=== PATIENT | female | born 1950 | race Caucasian/White ===

== ENCOUNTER 2017-12-16 14:23 | Outpatient (CLI) | payer MEDICARE, OTHER | END 2017-12-16 14:24 | disposition home or self-care (01) | LOC: BICMAMMO 14:23 | PROVIDERS: ATTEND General Practice | DX: Z12.31 Encounter for screening mammogram for malignant neoplasm of breast (principal); Z80.3 Family history of malignant neoplasm of breast | CPT/HCPCS: 77063; 77067 ==

== ENCOUNTER 2017-12-23 13:01 | Outpatient (CLI) | payer MEDICARE, OTHER | END 2017-12-23 13:02 | disposition home or self-care (01) | LOC: BICMAMMO 13:01 | PROVIDERS: ATTEND General Practice | DX: R92.2 Inconclusive mammogram (principal); Z80.3 Family history of malignant neoplasm of breast | CPT/HCPCS: 77065; G0279 ==

== ENCOUNTER 2018-01-19 04:18 | Emergency (ER) | payer MEDICARE, OTHER ==
[2018-01-19 04:49] LABS: #Basophils 0.1 thou/uL (0.0-0.2); #Eosinphils 0.3 thou/uL (0.0-0.7); #Lymphocytes 2.2 thou/uL (1.20-3.40); #Monocytes 0.6 thou/uL (0.11-0.59); #Neutrophils 2.9 thou/uL (1.40-6.50); %Basophils 1.5 % (0.0-1.0); %Eosinophils 4.2 % (0.0-10.0); %Lymphocytes 36.1 % (21.0-51.0); %Monocytes 10.2 % (0.0-10.0); %Neutrophils 48.1 % (42.0-75.0); Hemoglobin 14.4 g/dL (12.0-16.0); Mean Corpuscular HGB CONC 33.8 g/dL (32.0-36.0); Mean Corpuscular Hemoglobin 30.3 pg (27.0-31.0); Mean Corpuscular Volume 89.8 fl (81.0-99.0); Mean Platelet Volume 8.1 fL (7.4-10.4); Platelet Count 230 thou/uL (130-400); RBC Distribution Width 11.9 % (11.5-14.5); Red Blood Cell (RBC) Count 4.75 mill/uL (4.20-5.40); White Blood Cell (WBC) Count 6.1 thou/uL (4.8-10.8)
[2018-01-19 05:14] LABS: ALT (SGPT) 17 U/L (8-55); AST (SGOT) 16 U/L (5-34); Albumin 4.1 g/dL (3.4-4.8); Alkaline Phosphatase 70 U/L (40-150); Anion Gap 11 mmol/L (10-20); BUN (Urea Nitrogen) 16 mg/dL (9.8-20.1); Bilirubin, Total 0.3 mg/dL (0.2-1.2); Calc. Creatinine Clearance 0 mL/min (70-130); Calcium 8.8 mg/dL (7.8-10.44); Carbon Dioxide 22 mmol/L (23-31); Chloride 108 mmol/L (98-107); Estimated GFR-MDRD 57; Globulin 2.9 g/dL (2.4-3.5); Glucose 107 mg/dL (80-115); Lipase 34 U/L (8-78); Potassium 4.3 mmol/L (3.5-5.1); Sodium 137 mmol/L (136-145)
[2018-01-19 05:20] LABS: Bilirubin Negative (Negative); Blood, Urine Negative (Negative); Clarity CLOUDY (Clear); Glucose, Urine (Dipstick) Negative (Negative); Leukocyte Small (Negative); Nitrite Negative (Negative); Protein, Urine (Dipstick) Negative (Neg-Trace); Specific Gravity, Urine 1.014 (1.002-1.036); Urobilinogen 0.2 mg/dL (0.2-1.0)
[2018-01-19 05:49] LABS: Troponin I Less than 0.010 ng/mL (< 0.028)
[2018-01-19] MEDS ORDERED: Ketorolac Tromethamine 30 MG/ML VIAL ONE (06:32)
--- NOTE | 2018-01-19 10:39 | ULT ---
PRELIMINARY REPORT/[facility]/EMERGENTY AFTER-HOURS PROCEDURE US Abdomen Limited, Right Upper Quadrant CLINICAL HISTORY: 67 years old, female; Pain and signs and symptoms; Nausea and other: Diarrhea; Abdominal pain; Epigas tric; Patient HX: Epigastric pain that radiates to chest and back TECHNIQUE: Real-time ultrasound of the right upper quadrant with image documentation. COMPARISON: No relevant prior studies available. FINDINGS: Normal gallbladder. No cholelithiasis. No gallbladder wall thickening or pericholecystic fluid. No bi liary dilation, common duct measures about 4-5 mm. Slight increased echogenicity of the liver may ind icate fatty infiltration. Otherwise unremarkable liver, no focal abnormality. Visible pancreas unremarkable. Images of the right kidney show no hydronephrosis. IMPRESSION: No cholelithiasis or biliary tree dilation. Other findings discussed above. Thank you for allowing us to participate in the care of your patient. Dictated and Authenticated by: Cristofer Hayes MD 01/19/2018 6:35 AM Central Time ([place] & [place]) FINAL REPORT RIGHT UPPER QUADRANT ULTARSOUND: I agree with the preliminary report given by Dr. Cristofer Hayes of [facility]. POS: [facility]
--- NOTE | 2018-01-22 16:18 | EKG ---
Test Reason : Blood Pressure : / mmHG Vent. Rate : 065 BPM Atrial Rate : 065 BPM P-R Int : 166 ms QRS Dur : 072 ms QT Int : 420 ms P-R-T Axes : 062 024 024 degrees QTc Int : 436 ms Normal sinus rhythm Nonspecific T wave abnormality Abnormal ECG No ectopy Confirmed by BRYAN WEBBER, GIANCARLO ([id number]), editor farm journal KYLE BALDERRAMA ([id number]) on 01/22/2018 4:18:07 PM Referred By: Confirmed By:GIANCARLO ADAMS MD
== END 2018-01-19 07:19 | disposition home or self-care (01) ==
LOC: ERS 04:18
DX: K21.9 Gastro-esophageal reflux disease without esophagitis (principal); I10 Essential (primary) hypertension; Z79.899 Other long term (current) drug therapy
CPT/HCPCS: 76705; 80053; 81003; 81015; 82553; 83690; 84484; 85025; 93005; 96374; J1885

== ENCOUNTER 2018-07-22 05:45 | Day surgery (SDC) | payer MEDICARE, OTHER ==
--- NOTE | 2018-07-21 07:37 | HP ---
HISTORY OF PRESENT ILLNESS: This is a 68-year-old female who reports to the office for evaluation of carpal tunnel bilaterally. The patient states that she has had a lot of pain, numbness in both wrists. 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 The pain is worse at night after a long day of work. She has significant thenar atrophy as well as first dorsal interosseous atrophy. The patient denies any neck pain; however, she does have some pain that radiates up the back of her hands into her forearms. The patient denies using night splints. She has been referred to our office from Dr. France following him. EMG and nerve conduction study showing bilateral carpal tunnel. REVIEW OF SYSTEMS: A 10-point review of systems has been completed and is negative other than stated in the above HPI. PAST MEDICAL HISTORY: High cholesterol and hypertension. PAST SURGICAL HISTORY: Denies any past surgeries. FAMILY HISTORY: Father is , diagnosed with a stroke. Mother is , diagnosed with hypertension. SOCIAL HISTORY: The patient is a nonsmoker. Denies alcohol or other drug use. MEDICATIONS: Atenolol, aspirin. ALLERGIES: No known drug allergies. PHYSICAL EXAMINATION: HEENT: Head normocephalic, atraumatic. Extraocular movements are intact. Pupils are intact. NECK: Normal, soft, supple, no masses noted. Range of motion is intact and nonpainful. NEUROLOGIC: Awake, alert and oriented x3. Memory attention, fund of knowledge and language are normal. Cranial nerves are grossly intact. UPPER EXTREMITIES: 5/5 bilateral strength deltoids, biceps, triceps, wrist extension, finger extension, 4/5 finger intrinsics bilaterally. No deep tendon asymmetry. RESPIRATIONS: Normal work of breathing room air. IMAGING/TESTING: EMG nerve conduction study shows bilateral carpal tunnel entrapment median nerve. ASSESSMENT AND PLAN: Carpal tunnel syndrome of the right wrist. Dr. Roblero has offered surgery. The patient must be off aspirin for at least a week. The patient states that she understands the risks of surgery and is willing to move forward. [facility] HEALTH SYSTEMRosemarie
[2018-07-21 10:20] VITALS: BMI 33.4
[2018-07-22] MEDS ORDERED: Sodium Chloride 0.9% 10 ML ONE (06:18)
[2018-07-22 06:21] LABS: #Basophils 0.1 thou/uL (0.0-0.2); #Eosinphils 0.3 thou/uL (0.0-0.7); #Lymphocytes 2.3 thou/uL (1.20-3.40); #Monocytes 0.9 thou/uL (0.11-0.59); #Neutrophils 3.9 thou/uL (1.40-6.50); %Basophils 1.4 % (0.0-1.0); %Eosinophils 4.5 % (0.0-10.0); %Lymphocytes 30.3 % (21.0-51.0); %Monocytes 11.4 % (0.0-10.0); %Neutrophils 52.5 % (42.0-75.0); Hemoglobin 14.7 g/dL (12.0-16.0); Mean Corpuscular HGB CONC 32.2 g/dL (32.0-36.0); Mean Platelet Volume 8.1 fL (7.4-10.4); PTT 28.1 SEC (22.9-36.1); Platelet Count 259 thou/uL (130-400); Prothrombin Time 13.2 SEC (12.0-14.7); RBC Distribution Width 11.8 % (11.5-14.5); White Blood Cell (WBC) Count 7.5 thou/uL (4.8-10.8)
[2018-07-22] MEDS ORDERED: Lidocaine 1% (PF) 30 ML VIAL ONE (06:32)
[2018-07-22] MEDS ORDERED: Bacitracin Zinc Ointment 30 gm TUBE ONE (06:32)
[2018-07-22] MEDS ORDERED: CEFAZOLIN 2 GM/50 ML BAG ONE (06:34)
[2018-07-22] MEDS ORDERED: Fentanyl 100 MCG/2 ML VIAL ONE (06:49)
--- NOTE | 2018-07-22 08:12 | OP ---
DATE OF PROCEDURE: 07/22/2018 SURGEON: Leah Roblero M.D. TICKET DISPENSER CHANGER: None. PREOPERATIVE INDICATION: Treat pain, prevent neurological deterioration. PREOPERATIVE DIAGNOSES: Median neuropathy at the wrist (carpal tunnel syndrome). POSTOPERATIVE DIAGNOSIS: Median neuropathy at the wrist (carpal tunnel syndrome). PROCEDURE: Right-sided carpal tunnel release (median neuropathy at the wrist). PREOPERATIVE MEDICATION: Ancef 2 grams IV. DRAIN NUMBER: 0 DRAIN TYPE: None. PROCEDURE IN DETAIL: The patient was brought to the operating room. LMA anesthesia was induced. We planned an incision from the distal palmar crease into the palm in line with the web space between th e ring and middle finger of the hand. Under the planned incision, we infused local anesthetic. The entire arm was sterilely prepped and draped. We opened with a 15 blade knife and controlled bleeding with gentle bipolar cautery. We placed a self-retaining retractor and used a new 15 blade to sectio n the transverse carpal ligament until we opened the carpal tunnel. A [place] [address] d above the nerve and we sectioned the transverse carpal ligament into the palm until we encountered the palmar fat pad. We then placed a Lashae rake under the skin of the wrist and scissor blades below and above the transverse carpal ligament. We advanced into the wrist until there was no further comp ression of the median nerve. We irrigated copiously with bacitracin irrigation. We controlled bleed ing with gentle bipolar cautery. We closed the wound with vertical mattress 4-0 Prolene sutures. A sterile dressing was applied. This was a clean case and no contamination.
[2018-07-22] MEDS ORDERED: Promethazine HCl 25 MG/ML VIAL IM PRN (08:16)
[2018-07-22] MEDS ORDERED: Ondansetron PF 4 MG/2 ML Vial IVP PRN (08:16)
[2018-07-22] MEDS ORDERED: traMADol HCl 50 MG TAB PO PRN (08:16)
[2018-07-22] MEDS ORDERED: Promethazine 25 MG TAB PO PRN (08:16)
[2018-07-22] MEDS ORDERED: Acetaminophen 325 MG TAB PO PRN (08:16)
[2018-07-22] MEDS ORDERED: Promethazine HCl 12.5 MG SUPP PR PRN (08:16)
[2018-07-22] MEDS ORDERED: diphenhydrAMINE 25 MG CAP PO PRN (08:16)
[2018-07-22] MEDS ORDERED: Acetaminophen/Codeine 30-300mg Tablet PO PRN (08:16)
[2018-07-22] MEDS ORDERED: Dexamethasone 20 MG/5 ML VIAL ONE (13:20)
[2018-07-22] MEDS ORDERED: PROPOFOL 200 MG/20 ML VIAL ONE (13:20)
[2018-07-22] MEDS ORDERED: Ondansetron PF 4 MG/2 ML Vial ONE (13:20)
[2018-07-22] MEDS ORDERED: Ketorolac Tromethamine 30 MG/ML VIAL ONE (13:20)
[2018-07-22] MEDS ORDERED: Lidocaine 1% PF 5 ML VIAL ONE (13:20)
[2018-07-22] MEDS ORDERED: ePHEDrine/0.9% NaCl/PF SYRINGE 50 mg/10 ml ONE (13:20)
== END 2018-07-22 09:35 | disposition home or self-care (01) ==
LOC: SDC 05:45
PROVIDERS: ATTEND Neurological Surgery
PROC: 01N50ZZ Release Median Nerve, Open Approach (ICD-10-PCS; principal; 2018-07-22)
DX: G56.01 Carpal tunnel syndrome, right upper limb (principal); G56.11 Other lesions of median nerve, right upper limb; E78.00 Pure hypercholesterolemia, unspecified; I10 Essential (primary) hypertension; Z88.2 Allergy status to sulfonamides; Z79.899 Other long term (current) drug therapy
CPT/HCPCS: 36415; 85025; 85610; 85730; J1100; J1885; J2001; J2405; J2704; J3010; J3490

== ENCOUNTER 2018-07-24 21:53 | Emergency (ER) | payer MEDICARE, OTHER ==
[2018-07-24] MEDS ORDERED: HYDROcodone/Acetaminophen 5/325 mg Tablet ONE (22:25)
--- NOTE | 2018-07-24 22:43 | RAD ---
RIGHT WRIST THREE VIEWS: 07/24/2018 HISTORY: Right wrist pain. COMPARISON: None. FINDINGS: There is degenerative change involving the lateral aspect of the distal carpal row and the first carp ometacarpal joint. There is no widening of the scapholunate interval. There is chondrocalcinosis in the region of the triangular fibrocartilage complex. There is no displaced fracture or evidence of dislocation. There is radial carpal joint space narrowing, as well as joint space narrowing at the a rticulation of the lunate and capitate, with associated subchondral cystic change. IMPRESSION: Degenerative changes with no acute fracture or dislocation. If this study was performed in the setting of trauma and symptoms persist, followup in 7-10 days with dedicated scaphoid views advised. POS: [facility]
== END 2018-07-24 23:35 | disposition home or self-care (01) ==
LOC: ERS 21:53
DX: M25.531 Pain in right wrist (principal); K21.9 Gastro-esophageal reflux disease without esophagitis; I10 Essential (primary) hypertension; Z79.899 Other long term (current) drug therapy

== ENCOUNTER 2018-08-12 05:56 | Day surgery (SDC) | payer MEDICARE, OTHER ==
[2018-08-11 10:19] VITALS: BMI 32.8
[2018-08-12] MEDS ORDERED: Lidocaine 1% (PF) 30 ML VIAL ONE (06:41)
[2018-08-12] MEDS ORDERED: Sodium Chloride 0.9% 10 ML ONE (06:41)
[2018-08-12] MEDS ORDERED: Bacitracin Zinc Ointment 30 gm TUBE ONE (06:41)
[2018-08-12] MEDS ORDERED: Fentanyl 100 MCG/2 ML VIAL ONE (06:58)
[2018-08-12] MEDS ORDERED: CEFAZOLIN 2 GM/50 ML BAG ONE (09:01)
[2018-08-12] MEDS ORDERED: ePHEDrine/0.9% NaCl/PF SYRINGE 50 mg/10 ml ONE (13:17)
[2018-08-12] MEDS ORDERED: Lidocaine 1% PF 5 ML VIAL ONE (13:17)
[2018-08-12] MEDS ORDERED: Ketorolac Tromethamine 30 MG/ML VIAL ONE (13:17)
[2018-08-12] MEDS ORDERED: PROPOFOL 200 MG/20 ML VIAL ONE (13:17)
[2018-08-12] MEDS ORDERED: Ondansetron PF 4 MG/2 ML Vial ONE (13:17)
--- NOTE | 2018-08-12 14:19 | OP ---
DATE OF PROCEDURE: 08/12/2018 STORE MERCHANDISER: Stacie Toney PA-C PREOPERATIVE INDICATION: Treat pain and prevent neurological deterioration. PREOPERATIVE DIAGNOSIS: Left carpal tunnel syndrome/median neuropathy at the wrist. POSTOPERATIVE DIAGNOSIS: Left carpal tunnel syndrome/median neuropathy at the wrist. PROCEDURE PERFORMED: Left carpal tunnel release/median neurorrhaphy at the wrist. PREOPERATIVE MEDICATION: Ancef 2 g IV. DRAINS: Zero. DRAIN TYPE: None. DESCRIPTION OF PROCEDURE: The patient was brought to the operating room. LMA anesthesia was induced. The patient's entire left arm was sterilely prepped and draped. We planned our incision for the distal palmar crease into the palm to the base of the thumb. Under a planned incision, we infused local anesthetic. We opened our incision with a 10-blade knife and controlled bleeding with bipolar cautery. We placed a self-retaining retractor and used a fresh 15-blade to cut through the transverse carpal ligament. When we entered the carpal tunnel, a [place] 4 dissector was placed to protect the nerve and tendons beneath. We then cut down on opened the carpal tunnel proximally towards the wrist and distally into the hand. We continued ligament into the hand until we encountered the palmar fat pad. We then placed scissors. With one blade in and one blade outside of transverse carpal ligament, we advanced this into the forearm until there was no further compression on the median nerve. We irrigated copiously with bacitracin irrigation. We controlled bleeding with gentle bipolar cautery. We closed the wound in a vertical mattress fashion with 4-0 Prolene suture. Sterile dressing was applied. This was a clean case. No contamination. Job ID: [id number]
--- NOTE | 2018-08-12 19:03 | EKG ---
Test Reason : PREOP Blood Pressure : / mmHG Vent. Rate : 057 BPM Atrial Rate : 057 BPM P-R Int : 160 ms QRS Dur : 082 ms QT Int : 444 ms P-R-T Axes : 044 046 048 degrees QTc Int : 432 ms Sinus bradycardia Otherwise normal ECG When compared with ECG of 19-JAN-2018 04:26, No significant change was found Confirmed by Chantel CRAVEN ([id number]) on 08/12/2018 7:03:14 PM Referred By: MENG Confirmed By:Chantel CRAVEN
== END 2018-08-12 09:55 | disposition home or self-care (01) ==
LOC: SDC 05:56
PROVIDERS: ATTEND Neurological Surgery
PROC: 01N50ZZ Release Median Nerve, Open Approach (ICD-10-PCS; principal; 2018-08-12)
DX: G56.03 Carpal tunnel syndrome, bilateral upper limbs (principal); I10 Essential (primary) hypertension; Z79.82 Long term (current) use of aspirin; Z79.899 Other long term (current) drug therapy; Z88.2 Allergy status to sulfonamides
CPT/HCPCS: 93005; 93010; J1885; J2001; J2405; J2704; J3010; J3490

== ENCOUNTER 2018-12-19 09:52 | Outpatient (CLI) | payer MEDICARE, OTHER ==
--- NOTE | 2018-12-19 11:24 | MMO ---
Bilateral MAMMO Bilat Screen [facility]. CLINICAL HISTORY: Patient is 68 years old and is seen for screening. The patient has the following family history of breast cancer: grandmother. The patient has no personal history of cancer. The patient has a history of bilateral Implants in 1979 and Explantation in 1979 - THEN REPLACED. VIEWS: The views performed were: bilateral craniocaudal; bilateral mediolateral oblique; and bilateral Implant displaced with tomosynthesis. FILMS COMPARED: The present examination has been compared to prior imaging studies performed at [facility] on 11/27/2014, 11/28/2015, 12/03/2016, 12/16/2017 and 12/23/2017. MAMMOGRAM FINDINGS: There are scattered fibroglandular densities. There are stable benign appearing calcifications seen in both breasts. Stable benign appearing nodular densities are also again seen in each breast. Bilateral implants are stable. There are no suspicious masses, suspicious calcifications, or new areas of architectural distortion. IMPRESSION: THERE IS NO MAMMOGRAPHIC EVIDENCE OF MALIGNANCY. A ROUTINE FOLLOW-UP MAMMOGRAM IN 1 YEAR IS RECOMMENDED. THE RESULTS OF THIS EXAM WERE SENT TO THE PATIENT. ACR BI-RADS Category 2 - Benign finding MAMMOGRAPHY NOTE: 1. A negative mammogram report should not delay a biopsy if a dominant of clinically suspicious mass is present. 2. Approximately 10% to 15% of breast cancers are not detected by mammography. 3. Adenosis and dense breasts may obscure an underlying neoplasm.
== END 2018-12-19 09:53 | disposition home or self-care (01) ==
LOC: BICMAMMO 09:52
PROVIDERS: ATTEND General Practice
DX: Z12.31 Encounter for screening mammogram for malignant neoplasm of breast (principal); Z80.3 Family history of malignant neoplasm of breast; Z98.82 Breast implant status
CPT/HCPCS: 77063; 77067

== ENCOUNTER 2019-05-31 21:52 | Emergency (ER) | payer MEDICARE, OTHER ==
[2019-05-31 22:57] LABS: #Basophils 0.1 thou/uL (0.0-0.2); #Eosinphils 0.2 thou/uL (0.0-0.7); #Monocytes 0.7 thou/uL (0.11-0.59); #Neutrophils 3.8 thou/uL (1.40-6.50); %Basophils 1.9 % (0.0-1.0); %Eosinophils 2.8 % (0.0-10.0); %Lymphocytes 37.8 % (21.0-51.0); %Monocytes 9.2 % (0.0-10.0); %Neutrophils 48.3 % (42.0-75.0); Hemoglobin 14.4 g/dL (12.0-16.0); Mean Corpuscular HGB CONC 34.1 g/dL (32.0-36.0); Mean Corpuscular Hemoglobin 30.9 pg (27.0-31.0); Mean Corpuscular Volume 90.8 fL (78.0-98.0); Mean Platelet Volume 8.1 fL (7.4-10.4); Platelet Count 238 thou/uL (130-400); Red Blood Cell (RBC) Count 4.65 mill/uL (4.20-5.40); White Blood Cell (WBC) Count 7.9 thou/uL (4.8-10.8)
[2019-05-31 23:18] LABS: ALT (SGPT) 18 U/L (8-55); AST (SGOT) 16 U/L (5-34); Albumin 3.9 g/dL (3.4-4.8); Alkaline Phosphatase 68 U/L (40-110); Anion Gap 13 mmol/L (10-20); BUN (Urea Nitrogen) 19 mg/dL (9.8-20.1); Bilirubin, Total 0.2 mg/dL (0.2-1.2); Calc. Creatinine Clearance 0 mL/min (70-130); Calcium 9.1 mg/dL (7.8-10.44); Carbon Dioxide 25 mmol/L (23-31); Chloride 105 mmol/L (98-107); Estimated GFR-MDRD 46; Globulin 2.9 g/dL (2.4-3.5); Glucose 102 mg/dL (80-115); Lipase 48 U/L (8-78); Potassium 4.7 mmol/L (3.5-5.1); Protein, Total 6.8 g/dL (6.0-8.3); Sodium 138 mmol/L (136-145)
[2019-05-31 23:21] LABS: Bacteria/HPF None Seen HPF (None Seen); Bilirubin Negative (Negative); Blood, Urine Negative (Negative); Clarity Clear (Clear); Glucose, Urine (Dipstick) Normal (Negative); Leukocyte 250 Leu/uL (Negative); Mucous/LPF Rare LPF (<2+); Nitrite Negative (Negative); Protein, Urine (Dipstick) Negative (Neg-Trace); Squamous Epithelial 0-3 HPF (0-3)
--- NOTE | 2019-06-01 08:06 | ULT ---
PRELIMINARY REPORT/[facility]/EMERGENCY AFTER HOURS PROCEDURE: PROCEDURE INFORMATION: Exam: US Abdomen Limited, Right Upper Quadrant Exam date and time: 05/31/2019 11:57 PM Clinical history: 69 years old, female; Abdominal pain; Localized; Right upper quadrant (ruq); Patien t HX: Ruq pain that radiates to back x 2 days TECHNIQUE: Imaging protocol: Real-time ultrasound of the abdomen with image documentation. Examination was focus ed on the right upper quadrant. COMPARISON: No relevant prior studies available. FINDINGS: Liver: Unremarkable liver, no focal abnormality. Gallbladder: The gallbladder appears partially contracted. No cholelithiasis. No gallbladder wall thickening or pericholecystic fluid. Technologist states patient is tender over the gallbladder region during scanning. Common bile duct: No biliary dilation, common duct measures 3.8 mm. Pancreas: Visible pancreas unremarkable. Right kidney: Images of the right kidney show no hydronephrosis. IMPRESSION: 1. No cholelithiasis or biliary tree dilation. 2. Other findings discussed above. Thank you for allowing us to participate in the care of your patient. Dictated and Authenticated by: Cristofer Hayes MD 06/01/2019 1:27 AM Central Time ([place] & [place]) FINAL REPORT GALLBLADDER ULTRASOUND: Date: 05/31/19 HISTORY: Right upper quadrant pain. FINDINGS: Real-time imaging of the right upper quadrant shows a normal appearing gallbladder. No gallbladder wa ll thickening. Gallbladder is slightly contracted in appearance. Technologist does report pain over t he gallbladder region. The common duct is 3 mm. Visualized liver parenchyma shows no focal findings. It measures 16 cm in length. Right kidney is normal in size and not obstructed. The pancreas is fairl y well imaged and normal. IMPRESSION: Somewhat contracted gallbladder without evidence of gallstones. Technologist does report a positive u ltrasound Villalba's sign. Consideration for hepatobiliary scan if indicated. This report is in agreement with the preliminary report issued by [facility]. POS: [facility]
== END 2019-06-01 01:57 | disposition home or self-care (01) ==
LOC: ERS 21:52
DX: K58.9 Irritable bowel syndrome, unspecified (principal); K21.9 Gastro-esophageal reflux disease without esophagitis; I10 Essential (primary) hypertension; Z79.899 Other long term (current) drug therapy
CPT/HCPCS: 36415; 76705; 80053; 81003; 81015; 83690; 84484; 85025; 93005; 96372; J0500

== ENCOUNTER 2019-10-24 10:23 | Outpatient (CLI) | payer MEDICARE, OTHER ==
--- NOTE | 2019-10-24 12:44 | RAD ---
LUMBAR SPINE SERIES 3 VIEWS TO INCLUDE FLEXION AND EXTENSION: HISTORY: Back pain. FINDINGS: Vertebral bodies are normal in height. There is some mild degenerative disk narrowing at the L1-2 an d L2-3 levels. Degenerative facet changes are noted. No abnormal motion is seen on the flexion or e xtension views. IMPRESSION: Arthritic changes of the spine. Degenerative osteophytes and some moderate degenerative facet change s. POS: [facility]
== END 2019-10-24 10:24 | disposition home or self-care (01) ==
LOC: RAD 10:23
PROVIDERS: ATTEND Neurological Surgery
DX: M54.5 Low back pain (principal); M46.96 Unspecified inflammatory spondylopathy, lumbar region; M47.816 Spondylosis without myelopathy or radiculopathy, lumbar region; M25.78 Osteophyte, vertebrae
CPT/HCPCS: 72100

== ENCOUNTER 2020-02-16 20:30 | Outpatient (CLI) | payer MEDICARE, OTHER | END 2020-02-16 20:31 | disposition home or self-care (01) | LOC: SLEEPLAB 20:30 | PROVIDERS: ATTEND Physician Assistant | DX: G47.33 Obstructive sleep apnea (adult) (pediatric) (principal); R06.02 Shortness of breath; R06.83 Snoring; G47.00 Insomnia, unspecified; G47.10 Hypersomnia, unspecified; I10 Essential (primary) hypertension | CPT/HCPCS: 95811 ==

== ENCOUNTER 2020-02-28 10:36 | Outpatient (CLI) | payer MEDICARE, OTHER ==
--- NOTE | 2020-02-28 12:12 | RAD ---
3 views of the lumbar spine INDICATION: low back pain with tingling and cold sensations in the toes COMPARISON: Prior exam dated October 24, 2019. IMPRESSION: Mild multilevel spondylosis is stable appearing. No abnormal translational motion demonst rated. No acute osseous abnormality is demonstrated.
--- NOTE | 2020-02-28 12:16 | MRI ---
MR the lumbar spine without contrast INDICATION: 69-year-old female with low back pain and tingling sensation in the toes COMPARISON: Lumbar spinal radiograph dated February 28, 2020 TECHNIQUE: Multiplanar multisequence MR images were obtained of lumbar spine without IV contrast. FINDINGS: Bone marrow: Bone marrow signal intensity appears within normal limits. Distal spinal cord and conus: Normal. The conus seen to terminate at L1. Visualized retroperitoneum and paraspinal soft tissues: There are multiple bilateral renal cysts. The largest is seen within the superior pole left kidney measuring 3.3 cm. No enlarged lymph nodes or free fluid is evident. Vertebral levels: L5-S1: There is a broad-based bulge with facet hypertrophy, greater on the right. There is no appreci able central canal or neural foraminal narrowing.. L4-5: There is mild facet joint degenerative change but no appreciable central canal or neural forami nal narrowing. L3-4: There is a broad-based bulge with facet hypertrophy causing mild neural foraminal encroachment but no appreciable impingement. L2-3: There is mild broad-based bulge but no appreciable central canal or neural foraminal narrowing. L1-L2: There is mild broad-based bulge but no appreciable central canal or neural foraminal narrowing T12-L1: There is a mild broad-based bulge but no appreciable central canal or neural foraminal narrow ing. IMPRESSION: 1. Mild lumbar spondylosis with mild neural foraminal encroachment at L3-4. 2. Bilateral renal cysts.
== END 2020-02-28 10:37 | disposition home or self-care (01) ==
LOC: TBSIIMAG 10:36
PROVIDERS: ATTEND Neurological Surgery
DX: M54.40 Lumbago with sciatica, unspecified side (principal); M47.816 Spondylosis without myelopathy or radiculopathy, lumbar region; N28.1 Cyst of kidney, acquired
CPT/HCPCS: 72100; 72148

== ENCOUNTER 2020-03-06 07:36 | Outpatient (CLI) | payer MEDICARE, OTHER ==
--- NOTE | 2020-03-06 08:47 | MMO ---
Bilateral MAMMO Bilat Screen [facility]. CLINICAL HISTORY: Patient is 69 years old and is seen for screening. The patient has the following family history of breast cancer: paternal grandmother. The patient has no personal history of cancer. The patient has a history of bilateral Implants in 1979 and Explantation in 1979 - THEN REPLACED. VIEWS: The views performed were: bilateral craniocaudal; bilateral craniocaudal with tomosynthesis; bilateral mediolateral oblique; bilateral mediolateral oblique with tomosynthesis; and bilateral Implant displaced with tomosynthesis. FILMS COMPARED: The present examination has been compared to prior imaging studies performed at [facility] on 12/03/2016, 12/16/2017, 12/23/2017 and 12/19/2018. This study has been interpreted with the assistance of computer-aided detection. MAMMOGRAM FINDINGS: There are scattered fibroglandular densities. Finding 1: There are stable benign appearing calcifications seen in both breasts. Finding 2: There are stable benign appearing densities seen in both breasts. Finding 3: Normal implants are present. There are no suspicious masses, suspicious calcifications, or new areas of architectural distortion. IMPRESSION: THERE IS NO MAMMOGRAPHIC EVIDENCE OF MALIGNANCY. A ROUTINE FOLLOW-UP MAMMOGRAM IN 1 YEAR IS RECOMMENDED. THE RESULTS OF THIS EXAM WERE SENT TO THE PATIENT. ACR BI-RADS Category 2 - Benign finding MAMMOGRAPHY NOTE: 1. A negative mammogram report should not delay a biopsy if a dominant of clinically suspicious mass is present. 2. Approximately 10% to 15% of breast cancers are not detected by mammography. 3. Adenosis and dense breasts may obscure an underlying neoplasm. Reported by: RONY MUELLER MD Electonically Signed: [id number]
== END 2020-03-06 07:37 | disposition home or self-care (01) ==
LOC: BICMAMMO 07:36
DX: Z12.31 Encounter for screening mammogram for malignant neoplasm of breast (principal); Z80.3 Family history of malignant neoplasm of breast; Z98.82 Breast implant status
CPT/HCPCS: 77063; 77067

== ENCOUNTER 2021-05-30 12:21 | Outpatient (CLI) | payer MEDICARE, OTHER | END 2021-05-30 12:22 | disposition home or self-care (01) | LOC: TBSIIMAG 12:21 | PROVIDERS: ATTEND Neurological Surgery | DX: M47.12 Other spondylosis with myelopathy, cervical region (principal); R51.9 Headache, unspecified; E04.1 Nontoxic single thyroid nodule; I67.89 Other cerebrovascular disease | CPT/HCPCS: 70551; 72050; 72141 ==

== ENCOUNTER 2021-07-04 23:00 | Emergency (ER) | payer MEDICARE, OTHER ==
[2021-07-04] MEDS ORDERED: Acetaminophen 500 MG TAB ONE (23:39)
== END 2021-07-05 01:30 | disposition home or self-care (01) ==
LOC: ERS 23:00
DX: I10 Essential (primary) hypertension (principal); R51.9 Headache, unspecified; K21.9 Gastro-esophageal reflux disease without esophagitis
CPT/HCPCS: 70450

== ENCOUNTER 2022-02-08 19:48 | Emergency (ER) | payer MEDICARE, OTHER ==
[2022-02-08] MEDS ORDERED: Proparacaine 0.5% Opth 15 ML BOT ONE (20:31)
== END 2022-02-08 22:25 | disposition home or self-care (01) ==
LOC: ERS 19:48
DX: H53.8 Other visual disturbances (principal); I10 Essential (primary) hypertension
CPT/HCPCS: 99283

== ENCOUNTER 2022-02-09 10:14 | Outpatient (CLI) | payer MEDICARE, OTHER | END 2022-02-09 10:15 | disposition home or self-care (01) | LOC: NM 10:14 | PROVIDERS: ATTEND Internal Medicine Cardiovascular Disease | DX: R07.9 Chest pain, unspecified (principal) | CPT/HCPCS: 71046; 78451; A9540 ==

== ENCOUNTER 2022-02-13 01:56 | Emergency (ER) | payer MEDICARE, OTHER | END 2022-02-13 03:45 | disposition home or self-care (01) | LOC: ERS 01:56 | DX: M62.81 Muscle weakness (generalized) (principal); T38.0X5A Adverse effect of glucocorticoids and synthetic analogues, initial encounter; I10 Essential (primary) hypertension; K21.9 Gastro-esophageal reflux disease without esophagitis; N28.1 Cyst of kidney, acquired; Z87.19 Personal history of other diseases of the digestive system; Z79.899 Other long term (current) drug therapy | CPT/HCPCS: 99284 ==

== ENCOUNTER 2022-05-19 19:51 | Emergency (ER) | payer MEDICARE, OTHER ==
[2022-05-19 21:09] LABS: #Basophils 0.1 thou/uL (0.0-0.2); #Eosinphils 0.2 thou/uL (0.0-0.7); #Lymphocytes 2.5 thou/uL (1.20-3.40); #Monocytes 0.7 thou/uL (0.11-0.59); #Neutrophils 3.9 thou/uL (1.40-6.50); %Basophils 1.4 % (0.0-1.0); %Eosinophils 2.6 % (0.0-10.0); %Lymphocytes 33.4 % (21.0-51.0); %Monocytes 9.9 % (0.0-10.0); %Neutrophils 52.8 % (42.0-75.0); Hemoglobin 13.9 g/dL (12.0-16.0); Mean Corpuscular Hemoglobin 31.5 pg (27.0-31.0); Mean Corpuscular Volume 95.4 fL (78.0-98.0); Mean Platelet Volume 8.2 fL (7.4-10.4); Platelet Count 215 thou/uL (130-400); RBC Distribution Width 11.6 % (11.5-14.5); Red Blood Cell (RBC) Count 4.41 mill/uL (4.20-5.40); White Blood Cell (WBC) Count 7.4 thou/uL (4.8-10.8)
[2022-05-19 21:31] LABS: ALT (SGPT) 17 U/L (8-55); AST (SGOT) 20 U/L (5-34); Albumin 3.8 g/dL (3.4-4.8); Alkaline Phosphatase 57 U/L (40-110); Anion Gap 15 mmol/L (10-20); BUN (Urea Nitrogen) 33 mg/dL (9.8-20.1); Bilirubin, Total Less than 0.2 mg/dL (0.2-1.2); Calc. Creatinine Clearance 0 mL/min (70-130); Calcium 9.5 mg/dL (7.8-10.44); Carbon Dioxide 24 mmol/L (23-31); Chloride 107 mmol/L (98-107); Estimated GFR 48; Glucose 98 mg/dL (83-110); Lipase 43 U/L (8-78); Potassium 5.2 mmol/L (3.5-5.1); Protein, Total 6.8 g/dL (5.8-8.1); Sodium 141 mmol/L (136-145)
[2022-05-19 21:37] LABS: Bacteria/HPF 1+ HPF (None Seen); Bilirubin Negative (Negative); Blood, Urine Negative (Negative); Clarity Turbid (Clear); Glucose, Urine (Dipstick) Normal (Negative); Ketone, Urine Negative (Negative); Leukocyte 500 Leu/uL (Negative); Nitrite Negative (Negative); Protein, Urine (Dipstick) Negative (Neg-Trace); RBC/HPF 0-3 HPF (0-3); Specific Gravity, Urine 1.026 (1.002-1.036); Urobilinogen Normal mg/dL (Less than 2); WBC/HPF Greater than 50 HPF (0-3)
== END 2022-05-19 23:47 | disposition home or self-care (01) ==
LOC: ERS 19:51
DX: N28.1 Cyst of kidney, acquired (principal); I12.9 Hypertensive chronic kidney disease with stage 1 through stage 4 chronic kidney disease, or unspecified chronic kidney disease; N18.9 Chronic kidney disease, unspecified; K21.9 Gastro-esophageal reflux disease without esophagitis
CPT/HCPCS: 36415; 74176; 80053; 81003; 81015; 83690; 85025; 87086; 93005

== ENCOUNTER 2022-05-29 10:54 | Outpatient (CLI) | payer MEDICARE, OTHER | END 2022-05-29 10:55 | disposition home or self-care (01) | LOC: BICMAMMO 10:54 | PROVIDERS: ATTEND Nurse Practitioner Family | DX: Z12.31 Encounter for screening mammogram for malignant neoplasm of breast (principal); Z98.82 Breast implant status | CPT/HCPCS: 77063; 77067 ==

== ENCOUNTER 2022-09-27 09:52 | Emergency (ER) | payer MEDICARE, OTHER | END 2022-09-27 11:36 | disposition home or self-care (01) | LOC: ERS 09:52 | DX: L30.9 Dermatitis, unspecified (principal); I10 Essential (primary) hypertension; K21.9 Gastro-esophageal reflux disease without esophagitis | CPT/HCPCS: 99282 ==

== ENCOUNTER 2022-11-11 13:15 | Emergency (ER) | payer MEDICARE, OTHER ==
[2022-11-11] MEDS ORDERED: Atropine Sulfate 1 mg/10 ml Syringe ONE ×3 (13:39→14:46)
[2022-11-11 14:27] LABS: #Basophils 0.1 thou/uL (0.0-0.2); #Eosinphils 0.1 thou/uL (0.0-0.7); #Lymphocytes 1.2 thou/uL (1.20-3.40); #Monocytes 0.5 thou/uL (0.11-0.59); #Neutrophils 3.7 thou/uL (1.40-6.50); %Basophils 1.4 % (0.0-1.0); %Eosinophils 1.5 % (0.0-10.0); %Monocytes 8.5 % (0.0-10.0); %Neutrophils 66.6 % (42.0-75.0); Hemoglobin 13.8 g/dL (12.0-16.0); Mean Corpuscular HGB CONC 33.2 g/dL (32.0-36.0); Mean Corpuscular Hemoglobin 31.9 pg (27.0-31.0); Mean Corpuscular Volume 96.1 fl (78.0-98.0); Mean Platelet Volume 9.4 fL (7.4-10.4); Platelet Count 193 10x3/uL (130-400); RBC Distribution Width 12.5 % (11.5-14.5); Red Blood Cell (RBC) Count 4.32 mill/uL (4.20-5.40); White Blood Cell (WBC) Count 5.6 10x3/uL (4.8-10.8)
[2022-11-11 15:27] LABS: ALT (SGPT) 15 U/L (8-55); AST (SGOT) 19 U/L (5-34); Albumin 3.8 g/dL (3.4-4.8); Alkaline Phosphatase 49 U/L (40-110); BUN (Urea Nitrogen) 28 mg/dL (9.8-20.1); Bilirubin, Total 0.3 mg/dL (0.2-1.2); Calc. Creatinine Clearance 0 mL/min (70-130); Calcium 8.9 mg/dL (7.8-10.44); Carbon Dioxide 19 mmol/L (23-31); Chloride 102 mmol/L (98-107); Estimated GFR 45; Globulin 2.5 g/dL (2.4-3.5); Glucose 77 mg/dL (83-110); Potassium 4.6 mmol/L (3.5-5.1); Protein, Total 6.3 g/dL (5.8-8.1); Sodium 135 mmol/L (136-145)
[2022-11-11 17:06] LABS: Anion Gap 19 mmol/L (10-20)
== END 2022-11-11 15:43 | disposition home or self-care (01) ==
LOC: ERS 13:15
DX: R00.1 Bradycardia, unspecified (principal); R55 Syncope and collapse; K21.9 Gastro-esophageal reflux disease without esophagitis; I10 Essential (primary) hypertension
CPT/HCPCS: 80053; 83880; 84484; 85025; 93005; 96374; 96375; 96376; 99284; J0461; J1611; 36415

== ENCOUNTER 2023-04-11 10:13 | Emergency (ER) | payer MEDICARE ==
[2023-04-11 11:11] LABS: #Basophils 0.1 thou/uL (0.0-0.2); #Eosinphils 0.1 thou/uL (0.0-0.7); #Monocytes 0.5 thou/uL (0.11-0.59); %Basophils 1.1 % (0.0-1.0); %Eosinophils 1.6 % (0.0-10.0); %Lymphocytes 32.4 % (21.0-51.0); %Monocytes 9.5 % (0.0-10.0); Hematocrit 42.2 % (36.0-47.0); Hemoglobin 13.9 g/dL (12.0-16.0); Mean Corpuscular HGB CONC 32.9 g/dL (32.0-36.0); Mean Corpuscular Hemoglobin 30.6 pg (27.0-31.0); Mean Platelet Volume 12.1 fL (7.4-10.4); Platelet Count 147 10x3/uL (130-400); RBC Distribution Width 12.7 % (11.5-14.5); Red Blood Cell (RBC) Count 4.54 mill/uL (4.20-5.40); White Blood Cell (WBC) Count 5.5 10x3/uL (4.8-10.8)
[2023-04-11 11:32] LABS: ALT (SGPT) 17 U/L (8-55); AST (SGOT) 20 U/L (5-34); Albumin 3.9 g/dL (3.4-4.8); Alkaline Phosphatase 56 U/L (40-110); Anion Gap 13 mmol/L (10-20); BUN (Urea Nitrogen) 13 mg/dL (9.8-20.1); Bilirubin, Total 0.5 mg/dL (0.2-1.2); Calc. Creatinine Clearance 0 mL/min (70-130); Calcium 9.2 mg/dL (7.8-10.44); Carbon Dioxide 29 mmol/L (23-31); Chloride 102 mmol/L (98-107); Estimated GFR 40; Globulin 2.4 g/dL (2.4-3.5); Glucose 92 mg/dL (83-110); Lipase 24 U/L (8-78); Potassium 4.2 mmol/L (3.5-5.1); Protein, Total 6.3 g/dL (5.8-8.1); Sodium 140 mmol/L (136-145)
[2023-04-11 11:33] LABS: Bilirubin Negative (Negative); Blood, Urine Negative (Negative); CAUTI Indications for Culture Pelvic or flank pain; Clarity Clear (Clear); Glucose, Urine (Dipstick) Normal (Negative); Ketone, Urine 40 mg/dL (Negative); Leukocyte 500 Leu/uL (Negative); Nitrite Negative (Negative); Protein, Urine (Dipstick) 20 mg/dL (Neg-Trace); RBC/HPF 0-3 HPF (0-3); Specific Gravity, Urine 1.022 (1.002-1.036); pH, Urine 6.5 (5.0-9.0)
[2023-04-11 11:38] LABS: Bacteria/HPF 1+ HPF (None Seen)
[2023-04-11 11:40] LABS: Urine Culture Reflex Yes Yes
[2023-04-11] MEDS ORDERED: Famotidine/PF 20 mg/2ml Vial ONE (12:07)
== END 2023-04-11 13:40 | disposition home or self-care (01) ==
LOC: ERS 10:13
DX: N39.0 Urinary tract infection, site not specified (principal); K21.9 Gastro-esophageal reflux disease without esophagitis
CPT/HCPCS: 80053; 81001; 83690; 84484; 85025; 87086; 93005; 96374; S0028

== ENCOUNTER 2025-08-13 03:02 | Emergency (ER) | payer MEDICARE ==
[2025-08-13 03:56] LABS: #Basophils 0.06 10x3/uL (0.0-0.2); #Eosinophils 0.18 10x3/uL (0.0-0.7); #Monocytes 0.77 10x3/uL (0.11-0.59); #Neutrophils 2.79 10x3/uL (1.40-6.50); %Basophils 1.0 % (0.0-1.0); %Eosinophils 2.9 % (0.0-10.0); %Lymphocytes 38.5 % (21.0-51.0); %Monocytes 12.4 % (0.0-10.0); %Neutrophils 44.7 % (42.0-75.0); Hematocrit 42.4 % (36.0-47.0); Hemoglobin 13.8 g/dL (12.0-16.0); Mean Corpuscular Hemoglobin 29.9 pg (27.0-31.0); Mean Corpuscular Volume 91.8 fL (78.0-98.0); Platelet Count 222 10x3/uL (130-400); Red Blood Cell (RBC) Count 4.62 mill/uL (4.20-5.40); White Blood Cell (WBC) Count 6.23 10x3/uL (4.8-10.8)
[2025-08-13 04:04] LABS: ALT (SGPT) 23 U/L (Less than 34); AST (SGOT) 24 U/L (11-34); Albumin 3.7 g/dL (3.1-4.5); Alkaline Phosphatase 55 U/L (40-110); Anion Gap 14 mmol/L (10-20); BUN (Urea Nitrogen) 11 mg/dL (9.8-20.1); Bilirubin, Total 0.4 mg/dL (0.3-1.2); Calc. Creatinine Clearance 0 mL/min (70-130); Calcium 9.3 mg/dL (7.8-10.44); Carbon Dioxide 26 mmol/L (23-31); Chloride 103 mmol/L (98-107); Globulin 3.0 g/dL (2.4-3.5); Glucose 108 mg/dL (83-110); Lipase 23 U/L (8-78); Potassium 4.0 mmol/L (3.5-5.1); Sodium 139 mmol/L (136-145)
[2025-08-13] MEDS ORDERED: Ondansetron PF 4 MG/2 ML Vial ONE (04:22)
[2025-08-13] MEDS ORDERED: Mag-Al 1200 mg/1200 mg/30 ML UDCUP ONE (04:22)
[2025-08-13] MEDS ORDERED: Lidocaine Viscous Sol 2% 15 ml UD Cup ONE (04:23)
[2025-08-13] MEDS ORDERED: hydrALAZINE 20 MG/ML VIAL ONE (06:20)
== END 2025-08-13 06:50 | disposition home or self-care (01) ==
LOC: ERS 03:02
DX: K29.00 Acute gastritis without bleeding (principal); I10 Essential (primary) hypertension
CPT/HCPCS: 74176; 80053; 83690; 84484; 85025; 93005; J0360; J2405; 96361; 96374; 96375